=== PATIENT | female | born 1975 | race Caucasian/White ===

== ENCOUNTER 2017-11-20 07:36 | Day surgery (SDC) | payer SELFPAY ==
[~2017-11-20] VITALS: Ht 165.1 cm; Wt 157.8 kg
[~2017-11-20 07:36] MED LIST: ABAC300; ACET325 PO; ALBU90OI INH; ALBU90OI6 INH; ALIVE WOMEN'S1 EAC1 PO; CHOL10002 PO; DOCU100 PO; ERGO50000 PO; FAMO20 PO; FERR325 PO; GLIP2.5ER PO; Glucophage1000 MG PO; HYDACE5 PO; HYDACE5325 PO; HYDCHL25 PO; Hair, Skin & N1 EACH PO; INSDET100 SC; INSUASPI SC; INSULANPEN SC; LEVSOD75 PO; LISI5 PO; LOSA25 PO; LOVA20 PO; LOVA40 PO; Lovastatin20 MG PO; METF500 PO; METPRE4DP PO; MULVITMIND PO; Naprosyn500 MG PO; Novolog100 UNIT/1 SC; OMEP20ER PO; PANT20 PO; PANT40 PO; PRED1SU BOTHEYES; PRED20 PO; PROC10 PO; PROM12.5S PO; PROM25 PO; Percocet 10-321 EACH PO; Protonix40 MG PO; RANI150; ROXICODONE5 MG PO; RXOXYACE PO; SITA100T2 PO; SITA25T2 PO; Synthroid/Le0.075 MG PO; [UNRECOGNIZED DRUG - REMARK] PO
== END 2017-11-20 12:58 | disposition home or self-care (01) ==
LOC: ORSCMMR 07:36
PROVIDERS: Orthopaedic Surgery
PROC: 0SBD4ZZ Excision of Left Knee Joint, Percutaneous Endoscopic Approach (ICD-10-PCS; principal; 2017-11-20 09:15)
DX: M23.222 Derangement of posterior horn of medial meniscus due to old tear or injury, left knee (principal); M22.42 Chondromalacia patellae, left knee; W18.30XA Fall on same level, unspecified, initial encounter; E66.01 Morbid (severe) obesity due to excess calories; Z68.43 Body mass index [BMI] 50.0-59.9, adult; I10 Essential (primary) hypertension; E10.9 Type 1 diabetes mellitus without complications; E03.9 Hypothyroidism, unspecified; E78.5 Hyperlipidemia, unspecified; Z79.82 Long term (current) use of aspirin; Z79.899 Other long term (current) drug therapy; Z79.4 Long term (current) use of insulin
CPT/HCPCS: 82947; J0171; J0690; J1100; J1885; J2250; J2405; J3010; J7120

== ENCOUNTER → 2022-03-05 | Outpatient (CLI) | payer SELFPAY ==
[2022-03-05 13:41] LABS: BASOPHILS ABSOLUTE AUTO 0.04 K/mm3 (0.00-0.23); BASOPHILS PERCENT AUTO 0 % (0-2); EOSINOPHILS ABSOLUTE AUTO 0.18 K/mm3 (0.00-0.68); EOSINOPHILS PERCENT AUTO 2 % (0-6); Hematocrit 41.9 % (33.0-51.0); Hemoglobin 13.9 g/dL (11.5-16.0); IMMATURE GRAN ABSOLUTE AUTO 0.07 K/mm3 (0.00-0.10); IMMATURE GRAN PERCENT AUTO 1 % (0-1); LYMPHOCYTES ABSOLUTE AUTO 1.75 K/mm3 (0.84-5.20); LYMPHOCYTES PERCENT AUTO 16 % (21-46); MONOCYTES ABSOLUTE AUTO 0.79 K/mm3 (0.16-1.47); MONOCYTES PERCENT AUTO 7 % (4-13); Mean Corpuscular HGB 30.8 pg (26.0-34.0); Mean Corpuscular HGB Conc 33.2 g/dL (31.5-36.5); Mean Corpuscular Volume 93 fL (80-100); Mean Platelet Volume 10.2 fL (9.1-12.4); NEUTROPHILS ABSOLUTE AUTO 7.98 K/mm3 (1.96-9.15); NEUTROPHILS PERCENT AUTO 74 % (41-73); Platelet Count 196 K/mm3 (150-400); RDW Coefficient Variation 13.3 % (11.7-14.2); RDW Standard Deviation 45.6 fL (35.1-46.3); Red Blood Cell Count 4.51 M/mm3 (3.80-5.20); White Blood Cell Count 10.81 K/mm3 (4.00-11.30)
[2022-03-05 14:12] LABS: Alanine Aminotransfer (ALT/SGP 31 U/L (12-78); Albumin, Blood 3.6 g/dL (3.4-5.0); Albumin/Globulin Ratio 0.8 (0.8-1.8); Alk Phos 75 U/L (50-136); Anion Gap 6 mmol/L (6-16); Aspartate Aminotrans (AST/SGOT 20 U/L (12-37); Bilirubin, Total 1.2 mg/dL (0.1-1.0); Blood Urea Nitrogen 7 mg/dL (8-24); Bun/Creatinine Ratio 11.9 (12.0-20.0); CO2, Blood 28 mmol/L (21-32); Calcium, Blood 9.1 mg/dL (8.5-10.1); Chloride, Blood 102 mmol/L (98-108); Creatinine, Blood 0.59 mg/dL (0.40-1.00); Globulin, Blood 4.5 g/dL (2.2-4.0); Glomerular Filtration Rate >60 (60-); Glucose, Blood 220 mg/dL (70-99); Potassium, Blood 4.2 mmol/L (3.5-5.5); Sodium, Blood 136 mmol/L (136-145); Total Protein, Blood 8.1 g/dL (6.4-8.2)
== END | disposition home or self-care (01) ==
LOC: LAB SHORT 13:36
PROVIDERS: Chiropractor
DX: R10.9 Unspecified abdominal pain (principal)
CPT/HCPCS: 80053; 83690; 85025

== ENCOUNTER 2024-01-14 13:58 | Emergency (ER) | payer SELFPAY ==
[~2024-01-14] VITALS: Ht 165.1 cm; Wt 163.3 kg
[~2024-01-14 13:58] MED LIST changes: +AZIT500 PO; +Acetaminophen650 M1 PO; +DULO30 PO; +EUTHYROX100 MC1 PO; +GABA300 PO; -INSDET100 SC; +LEVEMIR100 UNIT/1; +NOVOLOG100 UNIT/3; -Novolog100 UNIT/1 SC
[2024-01-14 15:56] LABS: BASOPHILS ABSOLUTE AUTO 0.03 K/mm3 (0.00-0.23); BASOPHILS PERCENT AUTO 0 % (0-2); EOSINOPHILS PERCENT AUTO 3 % (0-6); Hemoglobin 13.5 g/dL (11.5-16.0); IMMATURE GRAN ABSOLUTE AUTO 0.03 K/mm3 (0.00-0.10); IMMATURE GRAN PERCENT AUTO 0 % (0-1); LYMPHOCYTES ABSOLUTE AUTO 2.09 K/mm3 (0.84-5.20); LYMPHOCYTES PERCENT AUTO 29 % (21-46); MONOCYTES ABSOLUTE AUTO 0.62 K/mm3 (0.16-1.47); MONOCYTES PERCENT AUTO 9 % (4-13); Mean Corpuscular HGB 29.9 pg (26.0-34.0); Mean Corpuscular HGB Conc 32.1 g/dL (31.5-36.5); Mean Corpuscular Volume 93 fL (80-100); Mean Platelet Volume 10.7 fL (9.1-12.4); NEUTROPHILS ABSOLUTE AUTO 4.28 K/mm3 (1.96-9.15); NEUTROPHILS PERCENT AUTO 59 % (41-73); Platelet Count 159 K/mm3 (150-400); RDW Coefficient Variation 13.8 % (11.7-14.2); RDW Standard Deviation 46.3 fL (35.1-46.3); Red Blood Cell Count 4.52 M/mm3 (3.80-5.20); White Blood Cell Count 7.25 K/mm3 (4.00-11.30)
[2024-01-14 16:23] LABS: Alanine Aminotransfer (ALT/SGP 28 U/L (12-78); Albumin, Blood 3.4 g/dL (3.4-5.0); Albumin/Globulin Ratio 0.7 (0.8-1.8); Alk Phos 79 U/L (50-136); Anion Gap Unable to Calculate mmol/L (6-16); Aspartate Aminotrans (AST/SGOT 32 U/L (12-37); Bilirubin, Total 0.4 mg/dL (0.1-1.0); Blood Urea Nitrogen 8 mg/dL (8-24); CO2, Blood 31 mmol/L (21-32); Chloride, Blood 107 mmol/L (98-108); Globulin, Blood 4.7 g/dL (2.2-4.0); Glomerular Filtration Rate 114 (60-); Glucose, Blood 132 mg/dL (70-99); Potassium, Blood 4.1 mmol/L (3.5-5.5); Sodium, Blood 137 mmol/L (136-145); Total Protein, Blood 8.1 g/dL (6.4-8.2)
[2024-01-14] MEDS ORDERED: Potassium Chlo20 ME1 PO (17:36)
[2024-01-14] MEDS ORDERED: FUROSEMIDE20 MG PO (17:36)
[2024-01-14] MEDS ORDERED: ALBU90OI INH (18:29)
[2024-01-14] MEDS ORDERED: Prednisone50 MG PO (18:29)
[2024-01-14 18:30] VITALS: BP 139/83
[2024-01-14] MEDS ORDERED: PredniSONE 20 MG Tab PO ONE (18:35)
[2024-01-14] MEDS ORDERED: MethylPREDNISolone Sod Succ 125 MG Vial IV ONE (19:00)
[2024-01-14] MEDS ORDERED: Albuterol 2.5 MG/3 ML VIAL INH ONE (19:00)
== END 2024-01-14 18:45 | disposition home or self-care (01) ==
LOC: ER 13:58
PROVIDERS: Physician Assistant
DX: J45.909 Unspecified asthma, uncomplicated (principal); R79.89 Other specified abnormal findings of blood chemistry; Z99.3 Dependence on wheelchair; F17.200 Nicotine dependence, unspecified, uncomplicated; I10 Essential (primary) hypertension; E11.9 Type 2 diabetes mellitus without complications; Z79.4 Long term (current) use of insulin; Z79.84 Long term (current) use of oral hypoglycemic drugs; Z79.52 Long term (current) use of systemic steroids; Z79.899 Other long term (current) drug therapy; Z88.6 Allergy status to analgesic agent; Z88.8 Allergy status to other drugs, medicaments and biological substances
CPT/HCPCS: 71045; 80053; 83880; 84484; 85025; 93005; 93010; 99285-25; J7512

== ENCOUNTER 2024-02-24 01:57 | Observation (INO) | payer SELFPAY ==
[~2024-02-24] VITALS: Ht 175.3 cm; Wt 175.6 kg
[~2024-02-24 01:57] MED LIST changes: -Acetaminophen650 M1 PO; +FUROSEMIDE20 MG PO; -GABA300 PO; +Potassium Chlo20 ME1 PO; +Prednisone50 MG PO
[2024-02-24 02:38] LABS: BASOPHILS ABSOLUTE AUTO 0.03 K/mm3 (0.00-0.23); BASOPHILS PERCENT AUTO 0 % (0-2); EOSINOPHILS ABSOLUTE AUTO 0.19 K/mm3 (0.00-0.68); EOSINOPHILS PERCENT AUTO 2 % (0-6); Hematocrit 43.4 % (33.0-51.0); Hemoglobin 13.8 g/dL (11.5-16.0); IMMATURE GRAN ABSOLUTE AUTO 0.04 K/mm3 (0.00-0.10); IMMATURE GRAN PERCENT AUTO 1 % (0-1); LYMPHOCYTES ABSOLUTE AUTO 1.86 K/mm3 (0.84-5.20); LYMPHOCYTES PERCENT AUTO 21 % (21-46); MONOCYTES ABSOLUTE AUTO 0.74 K/mm3 (0.16-1.47); MONOCYTES PERCENT AUTO 8 % (4-13); Mean Corpuscular HGB 29.2 pg (26.0-34.0); Mean Corpuscular HGB Conc 31.8 g/dL (31.5-36.5); Mean Corpuscular Volume 92 fL (80-100); Mean Platelet Volume 10.8 fL (9.1-12.4); NEUTROPHILS ABSOLUTE AUTO 5.95 K/mm3 (1.96-9.15); NEUTROPHILS PERCENT AUTO 68 % (41-73); Platelet Count 165 K/mm3 (150-400); RDW Coefficient Variation 14.6 % (11.7-14.2); RDW Standard Deviation 49.1 fL (35.1-46.3); Red Blood Cell Count 4.72 M/mm3 (3.80-5.20); White Blood Cell Count 8.81 K/mm3 (4.00-11.30)
[2024-02-24 02:48] LABS: Base Excess Venous 3.7 mmol/L; Bicarbonate Venous 27.1 mmol/L (24.0-30.0); PCO2 Venous 45.4 mmHg (38-42)
[2024-02-24 02:54] LABS: International Normalized Ratio 0.99; Prothrombin Time Results 10.4 Sec (9.7-11.5)
[2024-02-24 02:56] LABS: Albumin, Blood 3.5 g/dL (3.4-5.0); Albumin/Globulin Ratio 0.8 (0.8-1.8); Bilirubin, Total 0.5 mg/dL (0.1-1.0); Bun/Creatinine Ratio 17.4 (12.0-20.0); Calcium, Blood 9.2 mg/dL (8.5-10.1); Creatinine, Blood 0.58 mg/dL (0.40-1.00); Globulin, Blood 4.6 g/dL (2.2-4.0); Potassium, Blood 4.2 mmol/L (3.5-5.5); Total Protein, Blood 8.1 g/dL (6.4-8.2)
[2024-02-24] MEDS ORDERED: Amoxicillin/Clavulanate K 875 MG Tab PO ONE (03:15)
[2024-02-24 03:57] LABS: D-Dimer, Quantitative 0.44 mg/L FEU (0.00-0.52)
[2024-02-24] MEDS ORDERED: Ondansetron HCl 2 MG / ML 2ML Vial IV PRN (04:15)
[2024-02-24 05:10] LABS: BASOPHILS ABSOLUTE AUTO 0.03 K/mm3 (0.00-0.23); BASOPHILS PERCENT AUTO 0 % (0-2); EOSINOPHILS ABSOLUTE AUTO 0.18 K/mm3 (0.00-0.68); EOSINOPHILS PERCENT AUTO 2 % (0-6); Hemoglobin 12.8 g/dL (11.5-16.0); IMMATURE GRAN ABSOLUTE AUTO 0.05 K/mm3 (0.00-0.10); IMMATURE GRAN PERCENT AUTO 1 % (0-1); LYMPHOCYTES ABSOLUTE AUTO 1.73 K/mm3 (0.84-5.20); LYMPHOCYTES PERCENT AUTO 19 % (21-46); MONOCYTES ABSOLUTE AUTO 0.81 K/mm3 (0.16-1.47); MONOCYTES PERCENT AUTO 9 % (4-13); Mean Corpuscular HGB 29.4 pg (26.0-34.0); Mean Corpuscular Volume 92 fL (80-100); Mean Platelet Volume 10.5 fL (9.1-12.4); NEUTROPHILS ABSOLUTE AUTO 6.31 K/mm3 (1.96-9.15); NEUTROPHILS PERCENT AUTO 69 % (41-73); Platelet Count 165 K/mm3 (150-400); RDW Coefficient Variation 14.6 % (11.7-14.2); RDW Standard Deviation 49.4 fL (35.1-46.3); Red Blood Cell Count 4.36 M/mm3 (3.80-5.20); White Blood Cell Count 9.11 K/mm3 (4.00-11.30)
[2024-02-24 05:35] LABS: Albumin, Blood 3.4 g/dL (3.4-5.0); Albumin/Globulin Ratio 0.8 (0.8-1.8); Bilirubin, Total 0.5 mg/dL (0.1-1.0); Creatinine, Blood 0.56 mg/dL (0.40-1.00); Globulin, Blood 4.2 g/dL (2.2-4.0); Potassium, Blood 4.1 mmol/L (3.5-5.5); Total Protein, Blood 7.6 g/dL (6.4-8.2)
[2024-02-24 06:19] VITALS: BP 133/79
[2024-02-24] MEDS ORDERED: TRELEGY ELLIPT1 EACH INH (06:36)
[2024-02-24] MEDS ORDERED: NOVOLOG FL100 UNIT/3 SC (06:38)
[2024-02-24] MEDS ORDERED: LEVEMIR100 UNIT/1 SC (06:40)
[2024-02-24] MEDS ORDERED: Mag Hydrox/Al Hydrox/Simeth 18 ML,Lidocaine 2% Viscous Soln 9 ML,Atropine/Scopalam/Hyos... PO PRN (06:45)
[2024-02-24] MEDS ORDERED: MethylPREDNISolone Sod Succ 125 MG Vial IV SCH (07:00)
[2024-02-24] MEDS ORDERED: Albuterol 2.5 MG/3 ML VIAL INH PRN (07:25)
[2024-02-24] MEDS ORDERED: CeFAZolin Sodium 1,000 MG in NS 50 ML IV SCH (08:00)
[2024-02-24] MEDS ORDERED: Enoxaparin 40 MG/0.4 ML SYR SC SCH (09:00)
[2024-02-24] MEDS ORDERED: Furosemide 10 MG/ML 4ML Vial IV SCH (09:00)
[2024-02-24] MEDS ORDERED: Losartan Potassium 50 MG Tab PO SCH (09:00)
--- NOTE | 2024-02-24 10:33 | NUR ---
medication reconcilation Pt confirms that she only uses [facility]. [facility] claim [facility] has her last picking up a 30 day supply of gabapentin 11/07/23. Confirmed that she is still using it. Pt stated taht she gets her insukin from her docotors office. Attempted x5 to call Dr Arrington at [phone]. [employer] didn't citrus picker. Left message for call back. Pt states that she takes Humulog 60-100 units CECILIO. Levemir 100 units Bid AC. She staed that her will bring in her pill bottles for confirmation. No claim history for metformin. Care ongoing.
[2024-02-24] MEDS ORDERED: METF500 PO (10:44)
[2024-02-24] MEDS ORDERED: ALBU90OI INH (10:44)
[2024-02-24] MEDS ORDERED: GABA300 PO ×2 (10:45→10:46)
[2024-02-24] MEDS ORDERED: 8 HOUR ACETAMI650 MG PO (10:45)
[2024-02-24] MEDS ORDERED: OMEP20ER PO (10:46)
[2024-02-24] MEDS ORDERED: ALBU2.5V5 NEB (10:46)
[2024-02-24] MEDS ORDERED: INSDET100 SC ×3 (10:46→15:05)
[2024-02-24] MEDS ORDERED: Insulin Human Lispro 100 Units/ML 3ML Syringe SC SCH (12:30)
[2024-02-24] MEDS ORDERED: HUMALOG KW100 UNIT/1 SC (15:03)
[2024-02-24] MEDS ORDERED: DULO60 PO (15:08)
[2024-02-24] MEDS ORDERED: TURMERIC500 M2 PO (15:09)
[2024-02-24] MEDS ORDERED: ACET325 PO (15:09)
--- NOTE | 2024-02-24 15:11 | NUR ---
MED REC. RECEIVED PT MED LIST FROM HER PCP. RECONSILED IN [facility]. PHARMACY AWARE OF CHANGES. CARE ON GOING.
[2024-02-24 15:34] VITALS: BP 151/83
--- NOTE | 2024-02-24 18:13 | NUR ---
REPORT RECEIVED VERIFIED PT A/O BUT VERY SOMULENT EASILY AROUSED BUT FALLS ASLEEP EASILY. PT REPORTS HER HOME MEDS BUT WHAT PT REPORTING DOESNT SEEM RIGHT. MED REC IS REQUESTED FROM HER MD TO VERIFY. MED REC VERIFIED AND PT MEDICATIONS CORRECTED. PT WANTS TO GO HOME, I TRIED EXPLAINING THE DANGER OF HER SANDEEP HOME NOT WELL BUT SHE WOULD LIKE TO LEAVE. I INSISTED SHE WAIT FOR MD TO ARRIVE.
--- NOTE | 2024-02-24 18:16 | NUR ---
MD NOTIFIED THAT PT WOULD LIKE TO SPEAK WITH MD. MD SPEAKING WITH PT AND SUGGESTED THAT IS O2 IS TURNED OFF AND SHE CAN MAINTAIN ABOVE 90 HE WOULD BE OK WITH HER LEAVING. O2 WAS ATTEMPED OFF BUT PT WITHIN A COUPLE MINUTES DESATED TO LOW 80SS AND STATED SHE WOULD STAY. NEW ORDERS PLACED FOR CPAP RT TO PLACE. AFTER CPAP PLACED PT SLEPT WELL FOR ALMOST 3 HOURS NO INTERUPTIONS
[2024-02-24 20:02] VITALS: BP 129/77
[2024-02-24] MEDS ORDERED: Insulin Glargine-Yfgn 100 Unit/mL 3 ML SYR SC SCH (21:00)
[2024-02-24] MEDS ORDERED: DULoxetine HCL 30 MG Cap DR PO SCH (21:00)
[2024-02-24 23:30] LABS: Source, Urine Voided
[2024-02-24 23:56] LABS: Appearance, Urine Clear (Clear); Bilirubin, Urine Neg (Neg); Blood, Urine 1+ (Neg); Color, Urine Pale Yellow (P-Yellow); Glucose Qualitative, Urine 4+ (Neg); Ketones, Urine Neg (Neg); Leukocyte Esterase, Urine Neg (Neg); Nitrite, Urine Neg (Neg); Protein, Urine Neg (Neg); Specific Gravity, Urine 1.015 (1.003-1.022); Urobilinogen, Urine NORM (Normal)
[2024-02-24 23:57] LABS: Bacteria Few /hpf; Red Blood Cells, Urine 0-2 /hpf (0-2); Squamous Epithelial Cells Mod /hpf (Few); White Blood Cells, Urine 0-2 /hpf (0-5)
[2024-02-25 04:31] VITALS: BP 132/72
[2024-02-25] MEDS ORDERED: Levothyroxine Sodium 0.1 MG Tab PO SCH (06:00)
--- NOTE | 2024-02-25 06:05 | NUR ---
NO ACUTE CHANGES, UA SENT, PATIENT SLEPT IN RECLINER, AT BEDSIDE, DENIES PAIN OR NV, VSS, 3L O2 VIA NC 93%, DIMINSHED LS IN BASES, MEDICATED WITH SOLUMEDROL, BS 360, MEDIUM INSULIN COVERAGE, CALL LIGHT WITH IN REACH. ALERT AND ORIENTED TO ALL, CLEARLY MAKES NEEDS KNOWN, POSSIBLE DISCHARGE TODAY
[2024-02-25 07:47] VITALS: BP 140/73
[2024-02-25] MEDS ORDERED: NS 250 ML IV PRN (08:25)
[2024-02-25] MEDS ORDERED: PredniSONE 20 MG Tab PO SCH (09:00)
[2024-02-25] MEDS ORDERED: PRED20 PO (12:30)
[2024-02-25] MEDS ORDERED: AMOX875 PO (12:30)
--- NOTE | 2024-02-25 13:35 | NUR ---
DISCHARGE PT LEFT WITH VIA PERSONAL WHEELCHAIR. SHE HAS BEEN IND IN ROOM, AMBULATING WELL TO RESTROOM AND BACK. DENIES SOB UNTIL SITTING DOWN, BUT RECOVERS QUICKLY. ALL INSTRUCTIONS GONE OVER WITH PATIENT AND . IV REMOVED WNL. ALL QUESTIONS ANSWERED.
== END 2024-02-25 13:25 | disposition home or self-care (01) ==
LOC: ER 01:57 → MEDS 01:58
PROVIDERS: Emergency Medicine; Nurse Practitioner Acute Care; ADMIT Internal Medicine
DX: J96.01 Acute respiratory failure with hypoxia (principal); J45.901 Unspecified asthma with (acute) exacerbation; R79.89 Other specified abnormal findings of blood chemistry; E03.9 Hypothyroidism, unspecified; E11.9 Type 2 diabetes mellitus without complications; J02.9 Acute pharyngitis, unspecified; I10 Essential (primary) hypertension; E66.9 Obesity, unspecified; Z68.43 Body mass index [BMI] 50.0-59.9, adult; Z79.84 Long term (current) use of oral hypoglycemic drugs; Z79.890 Hormone replacement therapy; Z79.899 Other long term (current) drug therapy; Z88.8 Allergy status to other drugs, medicaments and biological substances; Z88.6 Allergy status to analgesic agent
CPT/HCPCS: 36415; 71045; 80053; 81001; 82803; 82947; 83605; 83880; 84145; 84484; 85025; 85379; 85610; 85730; 87430; 94640; 94664; 94760; 94761; 94762; 99285-25; A9270; J0690; J1650; J1815; J1940; J2930; J7050; J7512

== ENCOUNTER → 2025-01-07 | Outpatient (CLI) | payer SELFPAY ==
[~2025-01-07] MED LIST changes: +8 HOUR ACETAMI650 MG PO; +ALBU2.5V5 NEB; +AMOX875 PO; +BASAGLAR K100 UNIT/3 SC; +DULO60 PO; +GABA300 PO; +HUMALOG KW100 UNIT/1 SC; +INSDET100 SC; +LEVEMIR100 UNIT/1 SC; +METOPROLOL SUCC25 MG PO; +MONT10T PO; +NOVOLOG FL100 UNIT/3 SC; +NYSTRIT TOP; +TRELEGY ELLIPT1 EACH INH; +TURMERIC500 M2 PO; +ZYRTEC10 M2 PO
== END ==
LOC: LAB 14:04 → LAB SHORT 14:04
DX: N90.89 Other specified noninflammatory disorders of vulva and perineum (principal)
CPT/HCPCS: 88304